=== PATIENT | female | born 1985 | race Caucasian/White ===

== ENCOUNTER 2019-02-21 08:28 | Emergency (ER) | payer MEDICAID ==
[~2019-02-21] VITALS: Ht 162.6 cm; Wt 120.3 kg
[2019-02-21 08:38] VITALS: BP 130/73
--- NOTE | 2019-02-21 08:43 | NUR ---
Patient ambulated to bed 1
--- NOTE | 2019-02-21 08:50 | NUR ---
PT PRESENTS TO EMERGENCY ROOM WITH C/O LOWER ABDOMINAL PAIN RADIATING TO LOWER BACK FOR 2 DAYS. REPORTS URINARY PROBLEMS;URGENCY, FREQUENCY AND HEMATURIA. DENIES ANY FEVER, CHILLS, NAUSEA OR VOMITING. AFEBRILE AT THIS TIME. VSS. BED LOCKED AND IN LOWEST POSITION. ERMD TO EVALUATE PT.
--- NOTE | 2019-02-21 09:11 | NUR ---
PT TRANSPORTED VIA [facility] FOR CT-SCAN
--- NOTE | 2019-02-21 09:17 | NUR ---
PT BACK FROM CT TO BED 1
[2019-02-21 09:29] LABS: BASOPHILS % (AUTO) 0.4 % (0.0-2.0); EOSINOPHILS # (AUTO) 0.1 K/uL (0-0.4); LYMPHOCYTES # (AUTO) 2.5 K/uL (2.5-16.5); LYMPHOCYTES % (AUTO) 34.1 % (20.5-51.1); MEAN CORPUSCULAR HEMOGLOBIN 26 pg (27-31); MEAN CORPUSCULAR HGB CONC 32 g/dL (33-37); MEAN CORPUSCULAR VOLUME 80.8 fL (80-94); MONOCYTES # (AUTO) 0.3 K/uL (0.8-1.0); MONOCYTES % (AUTO) 4.8 % (1.7-9.3); NEUTROPHILS # (AUTO) 4.3 K/uL (1.8-7.7); NEUTROPHILS % (AUTO) 58.7 % (42.2-75.2); PLATELET COUNT (AUTO) 288 K/uL (140-450); RED BLOOD CELL COUNT(AUTO) 4.57 MIL/uL (4.20-5.40); RED CELL DISTRIBUTION WIDTH 15.3 % (11.6-13.7); WHITE BLOOD COUNT (AUTO) 7.3 K/uL (4.8-10.8)
[2019-02-21 09:32] LABS: APPEARANCE,URINE HAZY (CLEAR); BILIRUBIN,URINE NEGATIVE (NEGATIVE); BLOOD, URINE 1+ (NEGATIVE); COLOR,URINE ORANGE (YELLOW); LEUKOCYTE ESTERASE ,URINE NEGATIVE (NEGATIVE); NITRITE, URINE POSITIVE (NEGATIVE); PH,URINE 5.5 (5.0-9.0); UGLUCOSE NEGATIVE (NEGATIVE)
[2019-02-21 09:46] LABS: ALBUMIN 3.6 g/dL (3.4-5.0); ANION GAP 9.9 (8-16); CARBON DIOXIDE 30.1 mmol/L (21-32); CREATININE 0.6 mg/dL (0.6-1.3); TOTAL BILIRUBIN 0.2 mg/dL (0.0-1.0)
--- NOTE | 2019-02-21 10:30 | NUR ---
Patient resting comfortably in bed. Vital Signs within normal limits.
[2019-02-21 10:39] LABS: WBC,URINE 0-5 /HPF (0-5)
[2019-02-21] MEDS ORDERED: cefTRIAXone 1,000 MG in LIDOCAINE MPF 1% - 5 mL VIAL 2.1 ML IM ONE (10:50)
[2019-02-21 11:28] VITALS: BP 116/65
--- NOTE | 2019-02-21 11:29 | NUR ---
Patient discharged with v/s stable. Written and verbal after care instructions given and explained. Patient alert, oriented and verbalized understanding of instructions. Ambulatory with steady gait. All questions addressed prior to discharge. ID band removed. Patient advised to follow up with PMD. Rx of Motrin, Zofran, Bactrim and [place] given. Patient educated on indication of medication including possible reaction and side effects. Opportunity to ask questions provided and answered.
== END 2019-02-21 11:29 | disposition home or self-care (01) ==
LOC: MED 08:28
DX: N39.0 Urinary tract infection, site not specified (principal); R91.1 Solitary pulmonary nodule
CPT/HCPCS: 36415; 74176; 80053; 81001; 81025; 85025; 96372; 99284; J0696; J2001